=== PATIENT | male | born 1995 | race Caucasian/White ===

== ENCOUNTER 2018-01-15 22:49 | Emergency (ER) | payer OTHER ==
[2018-01-16 00:58] LABS: EGFR Non-African American 112.3 (>60)
[2018-01-16 01:24] VITALS: BP 134/84
--- NOTE | 2018-01-16 04:24 | ED ---
Juan Cr Angela, scribed for Fuad Rendon MD on 01/16/18 at 0002 . Neurological HPI - HPI Summary HPI Summary: This pt is a 23 y/o male [facility] c/o intermittent episodes of numbness since yesterday. Pt reports that yesterday he suddenly had tingling and numbness in his left hand, immediately after he had numbness in his face, and then in his tongue. He states that after a couple of minutes his numbness resolved. Pt notes that after this episode he had an ocular migraine, which he often has. Today pt reports he had numbness in his right foot and in his left hand. He notes these episodes of numbness last a couple of minutes and resolve spontaneously. Denies slurred speech or any pain. He denies any aggravating or alleviating factors. Pt states he has been eating normally but does note he drinks a lot of coffee. PMHx: high cholesterol. Pt has been taking Atorvastatin since Fall 2016 for high cholesterol. Denies tobacco or drug use. He admits to occasional alcohol use. - History of Current Complaint Chief Complaint: EDGeneral Stated Complaint: NUMBNESS ON 01/14 Time Seen by Provider: 01/15/18 23:14 Hx Obtained From: Patient Onset/Duration: Started days ago - 1, Resolved Timing: Sudden Onset Onset Severity: Mild Current Severity: None Neurological Deficit Location: Generalized Pain Intensity: 0 - denies any pain Pain Scale Used: 0-10 Numeric Character: Numbness/Tingling - in hands and feet Aggravating: Nothing Alleviating: Nothing Associated Signs and Symptoms: Positive: Headache - ocular migraine. Negative: Pain, Impaired Speech, Chest Pain - Allergy/Home Medications Allergies/Adverse Reactions: Allergies Allergy/AdvReac Type Severity Reaction Status Date / Time No Known Allergies Allergy Verified 01/15/18 22:56 PMH/Surg Hx/FS Hx/Imm Hx Endocrine/Hematology History: Denies: Hx Diabetes Cardiovascular History: Reports: Other Cardiovascular Problems/Disorders - high cholesterol Infectious Disease History: No Infectious Disease History: Denies: Traveled Outside the [place] in Last 30 Days - Family History Known Family History: Negative: Cardiac Disease - Social History Alcohol Use: Rare Substance Use Type: Reports: None Smoking Status (MU): Never Smoked Tobacco Review of Systems Negative: Fever Cardiovascular: Negative Respiratory: Negative Gastrointestinal: Negative Genitourinary: Negative Musculoskeletal: Negative Positive: Headache - ocular migraine, Paresthesia, Numbness All Other Systems Reviewed And Are Negative: Yes Physical Exam - Summary Physical Exam Summary: Appearance: Well-appearing, no distress, Well-nourished Skin: Warm, color reflects adequate perfusion Head: Normal Head/Face inspection Eyes: Conjunctiva clear; EOMI ENT: Normal inspection Neck: Supple, no nodes, no JVD. Respiratory: Lungs clear, Normal breath sounds, no respiratory distress Cardio: RRR, No murmur, pulses normal, brisk capillary refill Abdomen: soft, nontender, no guarding, no rebound Bowel sounds: present Musculoskeletal: Strength Intact/ ROM intact. No calf tenderness. No edema. Neuro: Alert, muscle tone normal, facial symmetry, speech normal, sensory/motor intact. Cranial nerves II-XII are intact. Psychological: Normal Triage Information Reviewed: Yes Vital Signs On Initial Exam: Initial Vitals Temp Pulse Resp BP Pulse Ox 98 F 70 16 146/91 98 01/15/18 22:56 01/15/18 22:56 01/15/18 22:56 01/15/18 22:56 01/15/18 22:56 Vital Signs Reviewed: Yes Diagnostics - Vital Signs Vital Signs Temp Pulse Resp BP Pulse Ox 01/15/18 22:56 98 F 70 16 146/91 98 - Laboratory Lab Results: Lab Results 01/16/18 Range/Units 00:25 Sodium 141 (139-145) mmol/L Potassium 4.3 (3.5-5.0) mmol/L Chloride 106 (101-111) mmol/L Carbon Dioxide 29 (22-32) mmol/L Anion Gap 6 (2-11) mmol/L BUN 11 (6-24) mg/dL Creatinine 0.86 (0.67-1.17) mg/dL Est GFR ( Amer) 144.4 (>60) Est GFR (Non-Af Amer) 112.3 (>60) BUN/Creatinine Ratio 12.8 (8-20) Glucose 98 (70-100) mg/dL Calcium 9.3 (8.6-10.3) mg/dL Magnesium 1.8 L (1.9-2.7) mg/dL Total Bilirubin 0.30 (0.2-1.0) mg/dL AST 29 (13-39) U/L ALT 36 (7-52) U/L Alkaline Phosphatase 53 (34-104) U/L Total Protein 6.5 (6.4-8.9) g/dL Albumin 4.1 (3.2-5.2) g/dL Globulin 2.4 (2-4) g/dL Albumin/Globulin Ratio 1.7 (1-3) Result Diagrams: 01/16/18 00:25 Lab Statement: Any lab studies that have been ordered have been reviewed, and results considered in the medical decision making process. Re-Evaluation - Re-Evaluation First Eval Re-Evaluation Time: 01:04 Change: Improved Comment: Pt resting comfortably in bed. pt asymptomatic; pt with no focal deficits Course/Dx - Differential Dx Differential Diagnoses Neuro: Positive: Anxiety, Cerebrovascular Accident, Metabolic Abnormality, Temporal Arteritis, Transient Ischemic Attack - Diagnoses Provider Diagnoses: Paresthesia Discharge - Sign-Out/Discharge Documenting (check all that apply): Discharge - discharge to home - Discharge Plan Condition: Improved Disposition: HOME Patient Education Materials: Paresthesia (ED) Referrals: [facility] [place] - Alonzo LUA [Primary Care Provider] - 4 Days Grace Kelley MD [Medical Doctor] - If Needed - Billing Disposition and Condition Condition: IMPROVED Disposition: HOME The documentation as recorded by the Juan travis Angela accurately reflects the service I personally performed and the decisions made by , Fuad Rendon MD.
== END 2018-01-16 01:23 | disposition home or self-care (01) ==
LOC: ED 22:49
DX: R20.0 Anesthesia of skin (principal); G43.909 Migraine, unspecified, not intractable, without status migrainosus
CPT/HCPCS: 36415; 80053; 83735; 99282